=== PATIENT | male | born 1935 | race Caucasian/White ===

== ENCOUNTER → 2019-03-24 | Outpatient (CLI) | payer OTHER | LOC: MSO 12:26 | DX: H26.9 Unspecified cataract (principal); I10 Essential (primary) hypertension; Z79.82 Long term (current) use of aspirin; Z91.040 Latex allergy status ==

== ENCOUNTER → 2019-05-26 | Day surgery (SDC) | payer OTHER | LOC: MSO 09:37 | DX: H26.9 Unspecified cataract (principal); I10 Essential (primary) hypertension; I25.10 Atherosclerotic heart disease of native coronary artery without angina pectoris; Z85.46 Personal history of malignant neoplasm of prostate; Z79.82 Long term (current) use of aspirin; Z91.040 Latex allergy status; Z96.652 Presence of left artificial knee joint; Z96.642 Presence of left artificial hip joint | CPT/HCPCS: 00142; J0171; J2250; J2370; V2632 ==

== ENCOUNTER 2019-10-08 14:30 | Outpatient (RCR) | payer MEDICARE | END 2019-11-28 | disposition still patient (30) | LOC: PT | DX: M15.0 Primary generalized (osteo)arthritis (principal); R53.81 Other malaise ==